=== PATIENT | female | born 1955 | race African-American/Black ===

== ENCOUNTER → 2016-07-25 | Outpatient (CLI) | payer OTHER | LOC: LAB 09:29 | DX: E78.5 Hyperlipidemia, unspecified (principal); E55.9 Vitamin D deficiency, unspecified; I10 Essential (primary) hypertension | CPT/HCPCS: 82043; 82570 ==

== ENCOUNTER → 2016-07-26 | Outpatient (CLI) | payer OTHER ==
[2016-07-26 10:20] LABS: HEMOGLOBIN 11.9 gm/dl (12.3-15.3); RED BLOOD COUNT 4.08 M/UL (4.00-5.10); WHITE BLOOD COUNT 4.5 K/UL (4.5-11.0)
[2016-07-26 10:35] LABS: BUN/CREATININE RATIO 24 (0-10)
== END ==
LOC: LAB 08:52
PROVIDERS: Nurse Practitioner Primary Care
DX: I10 Essential (primary) hypertension (principal); E78.5 Hyperlipidemia, unspecified; E55.9 Vitamin D deficiency, unspecified
CPT/HCPCS: 36415; 80053; 80061; 85025

== ENCOUNTER → 2020-02-29 | Outpatient (CLI) | payer OTHER ==
[2020-02-29 11:17] LABS: HEMOGLOBIN 12.3 gm/dl (12.3-15.3); RED BLOOD COUNT 4.2 M/UL (4.00-5.10)
[2020-02-29 11:38] LABS: BUN/CREATININE RATIO 22 (0-10)
[2020-03-01 08:14] LABS: VITAMIN D, 25-HYDROXY 47.5 ng/mL (30.0-100.0)
== END ==
LOC: LAB 09:51
PROVIDERS: Nurse Practitioner Primary Care
DX: J30.9 Allergic rhinitis, unspecified (principal); I10 Essential (primary) hypertension; E78.5 Hyperlipidemia, unspecified; E55.9 Vitamin D deficiency, unspecified; R80.9 Proteinuria, unspecified; D69.6 Thrombocytopenia, unspecified; K59.09 Other constipation
CPT/HCPCS: 36415; 80053; 82652; 83735; 84443; 85025

== ENCOUNTER → 2020-05-24 | Outpatient (CLI) | payer OTHER ==
[2020-05-24 12:04] LABS: HEMOGLOBIN 12.8 gm/dl (12.3-15.3); RED BLOOD COUNT 4.28 M/UL (4.00-5.10); WHITE BLOOD COUNT 4.4 K/UL (4.5-11.0)
[2020-05-24 14:48] LABS: BUN/CREATININE RATIO 25 (0-10)
== END ==
LOC: LAB 09:55
PROVIDERS: Nurse Practitioner Primary Care
DX: J30.9 Allergic rhinitis, unspecified (principal); I10 Essential (primary) hypertension; E78.5 Hyperlipidemia, unspecified; E55.9 Vitamin D deficiency, unspecified; R80.9 Proteinuria, unspecified; D69.6 Thrombocytopenia, unspecified; K59.09 Other constipation
CPT/HCPCS: 36415; 80053; 82043; 82570; 83735; 84443; 85025

== ENCOUNTER → 2021-03-01 | Outpatient (CLI) | payer OTHER | LOC: EXRD 11:09 | DX: M85.9 Disorder of bone density and structure, unspecified (principal) | CPT/HCPCS: 77080 ==

== ENCOUNTER → 2021-03-01 | Outpatient (CLI) | payer OTHER | LOC: US 10:00 → EXRD 10:30 | DX: Z12.39 Encounter for other screening for malignant neoplasm of breast (principal) | CPT/HCPCS: 76641 ==

== ENCOUNTER → 2021-08-15 | Outpatient (CLI) | payer OTHER | LOC: LAB 09:51 | PROVIDERS: Nurse Practitioner Family | DX: E03.9 Hypothyroidism, unspecified (principal) | CPT/HCPCS: 36415; 84436; 84443; 84480 ==

== ENCOUNTER → 2021-09-12 | Outpatient (CLI) | payer OTHER ==
[2021-09-13 08:19] LABS: THYROXINE (T4) 6.6 ug/dL (4.5-12.0)
== END ==
LOC: LAB 10:06
PROVIDERS: Nurse Practitioner Family
DX: E03.9 Hypothyroidism, unspecified (principal)
CPT/HCPCS: 36415; 84436; 84443; 84480

== ENCOUNTER → 2021-09-26 | Outpatient (CLI) | payer OTHER ==
[2021-09-26 09:55] LABS: BUN/CREATININE RATIO 29 (0-10)
== END ==
LOC: LAB 08:47
PROVIDERS: Internal Medicine Nephrology
DX: R80.9 Proteinuria, unspecified (principal)
CPT/HCPCS: 36415; 80053; 82570; 84156